=== PATIENT | male | born 1955 | race Hispanic/Latino ===

== ENCOUNTER 2025-01-10 20:24 | Emergency (ER) | payer OTHER ==
[~2025-01-10] VITALS: Ht 185.4 cm; Wt 102.1 kg
[2025-01-10 20:58] LABS: BASOPHILS % 0.1 % (0.0-1.0); EOSINOPHILS % 0.1 % (0.0-6.0); HEMATOCRIT 43.6 % (38.2-49.6); HEMOGLOBIN 15.3 g/dL (14.0-18.0); LYMPHOCYTES # (AUTO) 0.8 (1.0-3.2); LYMPHOCYTES % 8.8 % (18.0-39.1); MEAN CORPUSCULAR HEMOGLOBIN 32.6 pg (28-32); MEAN CORPUSCULAR HGB CONC 35.1 g/dL (31-35); MEAN CORPUSCULAR VOLUME 92.8 fL (81-99); MONOCYTES # (AUTO) 0.3 (0.2-0.8); NEUTROPHILS # (AUTO) 7.8 (2.1-6.9); NEUTROPHILS % 87.7 % (38.7-80.0); PLATELET COUNT 158 x10e3/uL (140-360); RED CELL DISTRIBUTION WIDTH 13.5 % (11.7-14.4); WHITE BLOOD COUNT 8.95 x10e3/uL (4.8-10.8)
[2025-01-10] MEDS: ACETAMINOPHEN 325 MG TAB PO STA (21:12)
[2025-01-10] MEDS: SODIUM CHLORIDE 0.9% 1000ML 1,000 ML IV STA (21:12)
[2025-01-10 21:13] LABS: STREPTOCOCCUS GRP A ANTIGEN NEGATIVE (NEGATIVE)
[2025-01-10 21:20] LABS: CORONAVIRUS COVID-19 AG NEGATIVE (NEGATIVE); INFLUENZA A AG NEGATIVE (NEGATIVE); INFLUENZA B AG NEGATIVE (NEGATIVE)
[2025-01-10 21:22] LABS: ALBUMIN 3.7 g/dL (3.5-5.0); ALBUMIN/GLOBULIN RATIO 1.1 (0.8-2.0); ANION GAP 16.4 mmol/L (8-16); BILIRUBIN,TOTAL 1.3 mg/dL (0.2-1.2); CALCIUM 9.4 mg/dL (8.4-10.2); CREATININE, SERUM 1.16 mg/dL (0.72-1.25)
[2025-01-10 21:23] LABS: POTASSIUM 3.4 mmol/L (3.5-5.1)
[2025-01-10 21:28] LABS: TROPONIN I 0.013 ng/mL (0-0.300)
[2025-01-10] MEDS ORDERED: IOPAMIDOL 370 MG/ML 100 ML INFUS..BTL INJ ONE (23:55)
[2025-01-11] MEDS: IBUPROFEN 600 MG TAB PO STA (01:05)
[2025-01-11 01:14] LABS: CLARITY,URINE CLEAR (CLEAR); COLOR,URINE YELLOW (YELLOW)
[2025-01-11 01:15] LABS: BILIRUBIN,URINE NEGATIVE (NEGATIVE); EPITHELIAL CELLS,URINE RARE /LPF; GLUCOSE, URINE NEGATIVE (NEGATIVE); KETONES,URINE NEGATIVE (NEGATIVE); LEUKOCYTE ESTERASE ,URINE NEGATIVE (NEGATIVE); NITRITE,URINE NEGATIVE (NEGATIVE); PH,URINE 5.5 (5 - 7); PROTEIN,URINE DIPSTICK NEGATIVE (NEGATIVE); RBC,URINE 0-5 /HPF (0-5); URINE UROBILINOGEN 0.2 mg/dL (0.2 - 1)
[2025-01-11 01:16] LABS: BACTERIA,URINE MODERATE /HPF
[2025-01-11] MEDS ORDERED: AMOX TR-K CLV1 EAC2 PO (01:56)
[2025-01-11 02:00] VITALS: PULSE 74; RESP 17; TEMP 98.6; O2SAT 93
[2025-01-11] MEDS ORDERED: VENTOLIN HFA18 GM INH (02:01)
[2025-01-11] MEDS ORDERED: PREDNISONE20 MG PO (02:01)
== END 2025-01-11 02:25 | disposition home or self-care (01) ==
LOC: ER 20:30
DX: R06.02 Shortness of breath (principal); J18.9 Pneumonia, unspecified organism; R10.31 Right lower quadrant pain; R33.9 Retention of urine, unspecified; N28.1 Cyst of kidney, acquired; K76.89 Other specified diseases of liver; I10 Essential (primary) hypertension; R53.81 Other malaise; Z11.52 Encounter for screening for COVID-19
CPT/HCPCS: 36415; 71045; 74177; 80053; 81001; 82550; 83518; 83605; 83690; 83880; 84484; 85025; 87040; 87070; 87086; 87428; 93005; 99284; J2543; J7030; Q9967